=== PATIENT | female | born 1970 | race Caucasian/White ===

== ENCOUNTER 2022-05-15 08:00 | Emergency (ER) | payer BC ==
[~2022-05-15] VITALS: Ht 160 cm; Wt 70.3 kg
[2022-05-15] MEDS ORDERED: METHENAMINE MA500 MG PO (08:13)
== END 2022-05-15 10:36 | disposition home or self-care (01) ==
LOC: ER 08:00
DX: S93.401A Sprain of unspecified ligament of right ankle, initial encounter (principal); X50.1XXA Overexertion from prolonged static or awkward postures, initial encounter; Y93.9 Activity, unspecified; Y92.89 Other specified places as the place of occurrence of the external cause; Y99.9 Unspecified external cause status; Z87.798 Personal history of other (corrected) congenital malformations